=== PATIENT | male | born 1965 | race Caucasian/White ===

== ENCOUNTER 2016-06-10 00:22 | Emergency (ER) | payer OTHER ==
[2016-06-10] MEDS ORDERED: MORPHINE SULFATE 4 MG/ML SYRINGE ONE (00:35)
[2016-06-10] MEDS ORDERED: METHOCARBAMOL 750 MG TABLET ONE (01:09)
[2016-06-10] MEDS ORDERED: KETOROLAC TROMETHAMINE 60 MG/2 ML VIAL ONE (01:29)
--- NOTE | 2016-06-10 09:13 | RAD ---
RIGHT SHOULDER 3 VIEWS HISTORY: Nontraumatic right shoulder pain. Internal rotation, Grashey, and transscapular views of the right shoulder. COMPARISON: None. ALIGNMENT: Grossly unremarkable. FRACTURE: No displaced acute fracture. ACROMIOCLAVICULAR JOINT: Grossly unremarkable. GLENOHUMERAL JOINT: Grossly unremarkable. ABNORMAL CALCIFICATIONS: None. VISIBLE LUNG MENDENHALL: Grossly clear. Note of pacer placement. IMPRESSION: No gross malalignment or displaced acute fracture.
== END 2016-06-10 02:04 | disposition home or self-care (01) ==
LOC: ED 00:22
DX: M43.6 Torticollis (principal); M62.838 Other muscle spasm; I10 Essential (primary) hypertension; R00.1 Bradycardia, unspecified; F17.210 Nicotine dependence, cigarettes, uncomplicated; Z86.19 Personal history of other infectious and parasitic diseases
CPT/HCPCS: 73030; 99283 ×2; 96372 ×2; 20552 ×2; J2270; A9270; J1885